=== PATIENT | female | born 1995 | race Caucasian/White ===

== ENCOUNTER 2020-05-06 20:44 | Emergency (ER) | payer MEDICAID, SELFPAY ==
[2020-05-06 20:45] VITALS: BP 128/61; PULSE 71; RESP 18; TEMP 36.8; O2SAT 94; BMI 38.7
--- NOTE | 2020-05-06 21:07 | ED.DCSUM_ITS ---
- ER Visit Summary Date of Service: 05/06/20 Chief Complaint: Dysuria History of Present Illness: The patient is a 24 F who presents with dysuria that is been getting worse over the past 2 to 3 days. Patient states she has some burning in her inguinal area and perineum. Patient states this is worse whenev er she urinates. Patient states she also noted bumps in her rectal and vaginal area over the past 1 to 2 days. Patient admits to subjective chills but denies any fevers. Patient admits to nausea but denies any vomiting. Patient denies any back or flank pain. Patient denies any hematuria. Patient states she tried [id number] Azo with no improvement. Physical Examination: Vital signs are stable. Patient is afebrile. Patient is in no acute distress. Oral mucosa is pink and moist. Neck is supple. Trachea is midline. There is no JVD. Heart was regular rate and rhythm. Lungs are clear and equal bilaterally. Abdomen is soft. Bowel sounds are normal. There is no tenderness. There is no CVA tenderness. There is no rebound or guarding noted. Cranial nerves II through XII are intact. There are no focal motor or sensory deficits. Pelvic exam showed superficial papules and ulcers in the perineum as well as on the labia majora. There is no discharge or drainage. Test Results: Urinalysis showed leukocyte esterase of 100 and positive nitrates. There are 5-10 white blood cells. Urine hCG was negative. Emergency Department Course and Treatment: Patient was given a dose of Bactrim here. Patient was given a prescription for Bactrim. Patient was instructed to use warm sitz baths. Patient was instructed to follow-up with her primary care physician in 5 to 7 days. Patient was instructed return if worse in any way. Patient understood and was agreeable with the plan. All questions were answered. Disposition: Discharge home Impression: Urinary tract infection This note was generated with [employer] dictation software. It may contain incorrect words, spelling, and punctuation that were not noted in review of the chart prior to signing ED Disposition - Plan for ED Patient: Disposition: Home or Assisted Living Diagnosis: Urinary tract infection Instructions: ED CYSTITIS Female Adult Prescriptions: Smz/Tmp Ds [Bactrim Ds] 1 tab PO BID #6 tab Prescription Printed Referrals: NOT,DEFINED [NON-STAFF] - 3-5 Days
[2020-05-06 21:19] LABS: Color, Urine Yellow (Yellow); Glucose, Dipstick Normal (Normal); Ketone-Dipstick 5 mg/dl (Negative); Leukocyte Esterase-Dipstick 100 /ul (Negative); Nitrite-Dipstick Positive (Negative); Occult Blood-Urine 10 /ul (Negative); Protein-Dipstick 30 mg/dl (Negative); Urine Clarity Sl. Cloudy (Clear); Urine Urobilinogen 4 mg/dl (Normal)
[2020-05-06 21:21] LABS: Internal QC Validated? YES +Cl - CLEAR BKGD; Pregnancy, Urine Negative Negative
[2020-05-06 21:30] LABS: Urine Bilirubin Dipstick 3 mg/dL (Negative); White Blood Cells 5-10 SEEN /hpf (0-5)
[2020-05-06 21:31] LABS: Amorphous Sediment 1+ PHOS; Bacteria RARE /hpf (None Seen); Hyaline Cast 0-5 SEEN /lpf (0-5); Mucous, Urine 1+ /hpf (<or=2+); Red Blood Cells-Urine 0-5 SEEN /hpf (0-5); Squamous Epithelial Cells - UA 5-10 SEEN /hpf (5-10)
[2020-05-06 22:50] VITALS: RESP 18
[2020-05-06] MEDS: Smz/Tmp Ds Tablet 1 TABLET PO (22:50)
== END 2020-05-06 22:51 | disposition home or self-care (01) ==
PROVIDERS: Emergency Provider Emergency Medicine
DX: N39.0 Urinary tract infection, site not specified (principal)
CPT/HCPCS: 81001; 81025; 99283

== ENCOUNTER → 2020-05-11 16:09 | Outpatient (CLI) | payer MEDICAID, SELFPAY ==
[2020-05-11 13:27] VITALS: BMI 38.7
[2020-05-11 18:54] LABS: Chlamydia Trachomatis by PCR Negative (Negative); Neisserai gonorrhoeae by PCR Negative (Negative); Probe Check PASS; Sample Adequacy Control PASS; Specimen Processing Control PASS
[2020-05-15 04:48] LABS: HSV Culture Without Typing Positive (.)
== END ==
PROVIDERS: Referring Provider Nurse Practitioner Women's Health; Visit Provider Nurse Practitioner Women's Health
DX: Z11.3 Encounter for screening for infections with a predominantly sexual mode of transmission (principal); A60.04 Herpesviral vulvovaginitis
CPT/HCPCS: 87255; 87491; 87591

== ENCOUNTER → 2021-05-25 | Outpatient (CLI) | payer MEDICAID, SELFPAY ==
[2021-05-25 12:02] VITALS: BMI 40.0
== END | disposition home or self-care (01) ==
LOC: LABSPEC 13:57
PROVIDERS: Referring Provider Nurse Practitioner Women's Health; Visit Provider Nurse Practitioner Women's Health
DX: R30.0 Dysuria (principal); N89.8 Other specified noninflammatory disorders of vagina
CPT/HCPCS: 87070; 87086; 87088; 87205